=== PATIENT | female | born 1990 | race Caucasian/White ===

== ENCOUNTER 2020-02-13 23:00 | Emergency (ER) | payer OTHER ==
[~2020-02-13] VITALS: Ht 154.9 cm; Wt 81.7 kg
[~2020-02-13 23:00] MED LIST: CIPROFLOXIN HC2.5 M1 OPHTHALMIC; NOHOMEMEDICATIONS; NORCO 5-325 TA1 EACH PO; TRIAMCINOLONE A80 G2 TOP
[2020-02-13] MEDS ORDERED: EFFEXOR XR150 MG PO (23:09)
[2020-02-13] MEDS ORDERED: ABILIFY 5 MG TAB5 MG PO (23:10)
[2020-02-13] MEDS ORDERED: BENZTROPINE ME0.5 MG PO (23:10)
[2020-02-13] MEDS ORDERED: SUPER THERAVIT1 EACH PO (23:10)
[2020-02-13 23:27] LABS: URINE BILIRUBIN NEGATIVE (Negative); URINE BLOOD 2+ (Negative); URINE CLARITY CLEAR; URINE COLOR YELLOW; URINE GLUCOSE-RANDOM NEGATIVE (Negative); URINE KETONES NEGATIVE (Negative); URINE LEUKOCYTES 3+ (Negative); URINE NITRITE NEGATIVE (Negative); URINE PROTEIN 1+ (Negative); URINE SPECIFIC GRAVITY 1.015 (1.005-1.030); URINE UROBILINOGEN 0.2 E.U./dl (0.2-1.0)
[2020-02-13 23:37] LABS: BACTERIA >30 Many /HPF (None Seen); CASTS None Seen /LPF (None Seen); CRYSTALS None Seen /LPF (None Seen); MUCUS 0-3 Light strn/LPF (None Seen); SQUAMOUS 0-3 Few /LPF (0-3); URINE WBC >25 Many /HPF (0-5); WBC CLUMPS Moderate (None Seen)
[2020-02-13 23:37] LABS: ABSOLUTE LYMPHOCYTES 3.7 thou/uL (0.8-5.3); ABSOLUTE MONOCYTES 0.8 thou/uL (0.0-1.2); ABSOLUTE NEUTROPHILS 11.6 thou/uL (1.6-8.1); BASOPHILS 0.3 %; EOSINOPHILS 0.2 %; HEMATOCRIT 33.5 % (37.0-47.0); HEMOGLOBIN 11.4 gm/dL (12.0-15.0); MCH 29.1 pg (26.0-34.0); MCHC 33.9 g/dL (28.0-37.0); MCV 85.7 fL (80.0-100.0); MONOCYTES 4.7 %; MPV 7.6 fl. (7.2-11.1); NUCLEATED RBCS 0 /100WBC; PLATELET COUNT* 380 thou/uL (150-400); POLYS 71.8 %; RBC 3.91 mil/uL (4.20-5.00); RDW-CV 13.8 % (10.5-14.5); WBC 16.1 thou/uL (4.0-11.0)
[2020-02-13 23:45] LABS: CALCIUM 8.3 mg/dL (8.5-10.1); CREATININE 0.7 mg/dL (0.6-1.3); POTASSIUM 3.7 mmol/L (3.5-5.1)
[2020-02-13 23:50] LABS: ALBUMIN 3.6 g/dL (3.4-5.0); TOTAL BILIRUBIN 0.3 mg/dL (<0.1-1.0); TOTAL PROTEIN 7.6 g/dL (6.4-8.2)
[2020-02-14] MEDS ORDERED: PHENAZOPYRIDIN200 M2 PO (00:32)
[2020-02-14] MEDS ORDERED: KEFLEX500 M1 PO (00:32)
[2020-02-14] MEDS ORDERED: HYDROCODON-ACE1 EAC7 PO (00:32)
[2020-02-14 01:40] VITALS: BP 126/78
== END 2020-02-14 01:41 | disposition home or self-care (01) ==
LOC: M.ERS 23:00
PROVIDERS: Personal Emergency Response Attendant
DX: N39.0 Urinary tract infection, site not specified (principal); F31.9 Bipolar disorder, unspecified; F20.9 Schizophrenia, unspecified; Z88.6 Allergy status to analgesic agent

== ENCOUNTER 2020-06-23 11:00 | Emergency (ER) | payer OTHER ==
[~2020-06-23] VITALS: Ht 154.9 cm; Wt 68.0 kg
[~2020-06-23 11:00] MED LIST changes: +ABILIFY 5 MG TAB5 MG PO; +BENZTROPINE ME0.5 MG PO; +EFFEXOR XR150 MG PO; +HYDROCODON-ACE1 EAC7 PO; +KEFLEX500 M1 PO; +PHENAZOPYRIDIN200 M2 PO; +SUPER THERAVIT1 EACH PO
[2020-06-23 11:24] LABS: URINE BILIRUBIN NEGATIVE (Negative); URINE BLOOD NEGATIVE (Negative); URINE CLARITY CLEAR; URINE COLOR YELLOW; URINE GLUCOSE-RANDOM NEGATIVE (Negative); URINE KETONES NEGATIVE (Negative); URINE NITRITE-REFLEX NEGATIVE (Negative); URINE PROTEIN TRACE (Negative); URINE SPECIFIC GRAVITY 1.025 (1.005-1.030); URINE UROBILINOGEN 0.2 E.U./dl (0.2-1.0)
[2020-06-23 11:27] LABS: URINE LEUKOCYTES-REFLEX 2+ (Negative)
[2020-06-23 11:48] LABS: BACTERIA-REFLEX 1-9 Few /HPF (None Seen); CASTS None Seen /LPF (None Seen); CRYSTALS None Seen /LPF (None Seen); MUCUS None Seen strn/LPF (None Seen); SQUAMOUS 4-10 Moderate /LPF (0-3); URINE RBC 3-10 Few /HPF (0-2)
[2020-06-23] MEDS ORDERED: AZITHROMYCIN 2250 MG PO (11:57)
[2020-06-23] MEDS ORDERED: MACROBID 100 M100 M1 PO (11:57)
[2020-06-23] MEDS ORDERED: SUPRAX400 M1 PO (11:57)
[2020-06-23] MEDS ORDERED: DIFLUCAN150 MG PO (11:57)
[2020-06-23 12:09] VITALS: BP 130/78
== END 2020-06-23 12:09 | disposition home or self-care (01) ==
LOC: M.ERS 11:00
PROVIDERS: Family Medicine
DX: N39.0 Urinary tract infection, site not specified (principal); Z88.6 Allergy status to analgesic agent